=== PATIENT | female | born 1970 | race Hispanic/Latino ===

== ENCOUNTER → 2019-03-28 | Outpatient (CLI) | payer BC ==
[~2019-03-28] MED LIST: MEDROL4 MG/DOSE-; PAXIL20 MG PO; ULTRAM50 MG PO
== END ==
LOC: MAMMO 08:48
PROVIDERS: ATTEND Internal Medicine
DX: Z12.31 Encounter for screening mammogram for malignant neoplasm of breast (principal)
CPT/HCPCS: 77067

== ENCOUNTER 2021-10-08 05:26 | Emergency (ER) | payer BC, OTHER ==
[~2021-10-08] VITALS: Ht 157.5 cm; Wt 75.7 kg
[2021-10-08] MEDS ORDERED: KETOROLAC TROMETHAMINE 30 MG/ML VIAL IM ONE (06:23)
[2021-10-08] MEDS ORDERED: KETOROLAC TROMETHAMINE 30 MG/ML VIAL ONE (06:34)
[2021-10-08] MEDS ORDERED: NAPROXEN250 MG PO (07:52)
== END 2021-10-08 08:03 | disposition home or self-care (01) ==
LOC: ER 06:37
DX: M25.562 Pain in left knee (principal); M25.552 Pain in left hip; M25.572 Pain in left ankle and joints of left foot; V43.52XA Car driver injured in collision with other type car in traffic accident, initial encounter; Y92.488 Other paved roadways as the place of occurrence of the external cause; I10 Essential (primary) hypertension; F41.9 Anxiety disorder, unspecified
CPT/HCPCS: 73502; 73562; 73610; 99283; J1885

== ENCOUNTER → 2022-05-09 | Outpatient (CLI) | payer BC ==
[~2022-05-09] MED LIST changes: +NAPROXEN250 MG PO
== END ==
LOC: MAMMO 09:01
PROVIDERS: ATTEND Internal Medicine
DX: Z12.31 Encounter for screening mammogram for malignant neoplasm of breast (principal)
CPT/HCPCS: 77067

== ENCOUNTER → 2022-05-23 | Day surgery (SDC) | payer BC ==
[~2022-05-23] MED LIST changes: +ATENOLOL50 MG PO; +FENTANYL CITRATE/PF 100MCG/2 ML INJ ONE; +HYOSCYAMINE SULFATE 0.5 MG/ML INJ ONE; +LIDOCAINE HCL 2% LOCAL INJ 5 ML SDV VIAL INJ ONE; +MIDAZOLAM HCL 2 MG/2 ML VIAL ONE; +PROPOFOL IV EMULSION 10 MG/ML 20 ML VIAL ONE
[2022-05-23 09:50] VITALS: BP 125/82
== END | disposition home or self-care (01) ==
LOC: OR 07:08
PROVIDERS: ATTEND Internal Medicine Gastroenterology
DX: Z12.11 Encounter for screening for malignant neoplasm of colon (principal); D12.2 Benign neoplasm of ascending colon; K57.30 Diverticulosis of large intestine without perforation or abscess without bleeding; K64.8 Other hemorrhoids; M19.90 Unspecified osteoarthritis, unspecified site; H91.8X2 Other specified hearing loss, left ear; I10 Essential (primary) hypertension; Z68.30 Body mass index [BMI] 30.0-30.9, adult; Z90.49 Acquired absence of other specified parts of digestive tract; Z01.810 Encounter for preprocedural cardiovascular examination; Z01.812 Encounter for preprocedural laboratory examination; Z20.822 Contact with and (suspected) exposure to COVID-19
CPT/HCPCS: 0223U; 36415; 45385; 93005; J1980; J2001; J2250; J2704; J3010; 45378; 45384

== ENCOUNTER 2022-12-06 16:30 | Emergency (ER) | payer BC ==
[~2022-12-06] VITALS: Ht 157.5 cm; Wt 75.7 kg
[~2022-12-06 16:30] MED LIST changes: -FENTANYL CITRATE/PF 100MCG/2 ML INJ ONE; -HYOSCYAMINE SULFATE 0.5 MG/ML INJ ONE; -LIDOCAINE HCL 2% LOCAL INJ 5 ML SDV VIAL INJ ONE; -MIDAZOLAM HCL 2 MG/2 ML VIAL ONE; -PROPOFOL IV EMULSION 10 MG/ML 20 ML VIAL ONE
[2022-12-06] MEDS ORDERED: KETOROLAC TROMETHAMINE 30 MG/ML VIAL IV STA (17:06)
[2022-12-06] MEDS ORDERED: ONDANSETRON HCL INJ 2MG/ML 2ML 2 MG/ML VIAL IV PRN (17:15)
[2022-12-06] MEDS ORDERED: DEXAMETHASONE SOD PHOS 10 MG/1 ML VIAL IV ONE (17:15)
[2022-12-06] MEDS ORDERED: DIPHENHYDRAMINE HCL 25 MG CAP PO ONE (17:15)
[2022-12-06] MEDS ORDERED: SODIUM CHLORIDE 0.9% 1000ML 1,000 ML IV ONE (17:15)
[2022-12-06] MEDS ORDERED: DIPHENHYDRAMINE HCL INJ 50 MG/ML VIAL ONE (17:35)
[2022-12-06] MEDS ORDERED: PROMETHAZINE HC25 M1 PO (20:13)
[2022-12-06] MEDS ORDERED: FIORICET 50-301 EACH PO (20:13)
== END 2022-12-06 20:20 | disposition home or self-care (01) ==
LOC: ER 16:33
DX: G43.909 Migraine, unspecified, not intractable, without status migrainosus (principal); I10 Essential (primary) hypertension; F41.9 Anxiety disorder, unspecified
CPT/HCPCS: 70450; 99283; J1100; J1200; J1885; J2405; J7030

== ENCOUNTER 2023-02-18 20:37 | Emergency (ER) | payer BC, OTHER ==
[~2023-02-18] VITALS: Ht 157.5 cm; Wt 75.7 kg
[~2023-02-18 20:37] MED LIST changes: +FIORICET 50-301 EACH PO; +PROMETHAZINE HC25 M1 PO
[2023-02-18] MEDS ORDERED: HYDROCODONE/APAP 10MG-325MG TAB PO ONE (21:00)
[2023-02-18] MEDS ORDERED: KETOROLAC TROMETHAMINE 60 MG/2 ML VIAL IM ONE (21:00)
[2023-02-18] MEDS ORDERED: NAPROSYN500 MG PO (22:06)
[2023-02-18] MEDS ORDERED: CYCLOBENZAPRINE5 MG PO (22:06)
[2023-02-18 22:41] VITALS: BP 105/76
== END 2023-02-18 22:30 | disposition home or self-care (01) ==
LOC: ER 20:45
DX: S20.212A Contusion of left front wall of thorax, initial encounter (principal); V19.9XXA Pedal cyclist (driver) (passenger) injured in unspecified traffic accident, initial encounter; Y93.55 Activity, bike riding; Y92.89 Other specified places as the place of occurrence of the external cause; I10 Essential (primary) hypertension; F41.9 Anxiety disorder, unspecified
CPT/HCPCS: 71101; 99283; J1885

== ENCOUNTER 2025-01-23 18:15 | Emergency (ER) | payer BC ==
[~2025-01-23] VITALS: Ht 149.9 cm; Wt 74.8 kg
[~2025-01-23 18:15] MED LIST changes: +CYCLOBENZAPRINE5 MG PO; +NAPROSYN500 MG PO
[2025-01-23] MEDS: DEXAMETHASONE SOD PHOS 10 MG/1 ML VIAL IM STA (19:40)
[2025-01-23] MEDS: KETOROLAC TROMETHAMINE 30 MG/ML VIAL IM STA (19:40)
[2025-01-23 20:05] LABS: CORONAVIRUS COVID-19 AG NEGATIVE (NEGATIVE); INFLUENZA A AG NEGATIVE (NEGATIVE); INFLUENZA B AG NEGATIVE (NEGATIVE)
[2025-01-23 20:08] LABS: STREPTOCOCCUS GRP A ANTIGEN NEGATIVE (NEGATIVE)
[2025-01-23 20:42] VITALS: PULSE 89; RESP 20; TEMP 98.3; O2SAT 98
[2025-01-23] MEDS ORDERED: VENTOLIN HFA18 GM INH (20:44)
[2025-01-23] MEDS ORDERED: AZITHROMYCIN250 MG PO (20:44)
[2025-01-23] MEDS ORDERED: PREDNISONE20 MG PO (20:44)
== END 2025-01-23 20:50 | disposition home or self-care (01) ==
LOC: ER 18:55
DX: R06.02 Shortness of breath (principal); J06.9 Acute upper respiratory infection, unspecified; R05.9 Cough, unspecified; I10 Essential (primary) hypertension; E78.5 Hyperlipidemia, unspecified; J45.909 Unspecified asthma, uncomplicated; F41.9 Anxiety disorder, unspecified; F32.A Depression, unspecified; Z11.52 Encounter for screening for COVID-19
CPT/HCPCS: 83518; 87070; 87428; 99283; J1100; J1885

== ENCOUNTER → 2025-06-06 | Outpatient (REF) | payer BC ==
[~2025-06-06] MED LIST changes: +AZITHROMYCIN250 MG PO; +PREDNISONE20 MG PO; +VENTOLIN HFA18 GM INH
== END ==
LOC: MAMMO 15:57
PROVIDERS: ATTEND Internal Medicine
DX: Z12.31 Encounter for screening mammogram for malignant neoplasm of breast (principal); M17.12 Unilateral primary osteoarthritis, left knee
CPT/HCPCS: 77067